=== PATIENT | female | born 1965 | race American Indian/Alaskan Native ===

== ENCOUNTER 2020-12-12 17:47 | Emergency (ER) | payer BC ==
[2020-12-12 18:09] VITALS: BP 121/89
--- NOTE | 2020-12-12 19:23 | XRay Report ---
RIGHT ANKLE, 3 VIEWS INDICATION / CLINICAL INFORMATION: fall down steps, right ankle/foot pain. COMPARISON: None available. FINDINGS: There is mild diffuse soft tissue swelling especially noted medially. No fracture or dislocation of t he ankle is identified, however. Alignment is normal. IMPRESSION: Diffuse soft tissue swelling but no visible fracture or malalignment. RIGHT FOOT, 3 VIEWS INDICATION / CLINICAL INFORMATION: fall down steps, right ankle/foot pain. COMPARISON: None available. FINDINGS: No fracture or dislocation. IMPRESSION: No visible fracture or dislocation. Signer Name: Suni Manzo MD Signed: 12/12/2020 7:18 PM Workstation Name: [id number]
--- NOTE | 2020-12-12 20:05 | Emergency Department Report ---
ED Lower Extremity HPI - General Chief Complaint: Extremity Problem,Nontraumatic Stated Complaint: LT ANKLE PAIN Time Seen by Provider: 12/12/20 18:42 Source: patient Mode of arrival: Ambulatory Limitations: No Limitations - History of Present Illness Initial Comments: Patient is a 55-year-old female presents emergency room complaints of a fall that occurred last night. Patient states that she was inside her house and excellently tripped and fell down approximately 5 steps. She is complaining of right ankle pain and right foot pain and swelling. Denies ever injuring in the past. States ambulation increases her pain. She denies any numbness or weakness. No past medical history. allergy to pencillin. - Related Data Previous Rx's Medication Instructions Recorded Last Taken Type Naproxen 375 mg PO BID PRN #20 tablet 12/12/20 Unknown Rx Allergies Allergy/AdvReac Type Severity Reaction Status Date / Time Penicillins Allergy Unknown Verified 12/12/20 18:05 ED Review of Systems ROS: Stated complaint: LT ANKLE PAIN Other details as noted in HPI Comment: All other systems reviewed and negative ED Past Medical Hx - Past Medical History Previous Medical History?: No - Surgical History Past Surgical History?: No - Medications Home Medications: Home Medications Medication Instructions Recorded Confirmed Last Taken Type Naproxen 375 mg PO BID PRN #20 tablet 12/12/20 Unknown Rx ED Physical Exam - General Limitations: No Limitations General appearance: alert, in no apparent distress - Head Head exam: Present: atraumatic, normocephalic - Eye Eye exam: Present: normal appearance - ENT ENT exam: Present: mucous membranes moist - Extremities Exam Extremities exam: Present: other (ttp and edema present to the right lateral ankle and foot, no obvious deformity, decreased ROM secondary to pain, neurovascularly intact) - Neurological Exam Neurological exam: Present: alert, oriented X3 - Psychiatric Psychiatric exam: Present: normal affect, normal mood - Skin Skin exam: Present: warm, dry, intact ED Course Vital Signs 12/12/20 18:05 Temperature 98.6 F Pulse Rate 86 Respiratory 16 Rate Blood Pressure 121/89 [Left] O2 Sat by Pulse 96 Oximetry ED Lower Extremity MDM - Radiology Data Radiology results: report reviewed Ordering Physician: THALIA WEISS Date of Service: 12/12/20 Procedure(s): XR foot 3+V RT Accession Number(s): [id number] cc: THALIA WEISS Fluoro Time In Minutes: RIGHT ANKLE, 3 VIEWS INDICATION / CLINICAL INFORMATION: fall down steps, right ankle/foot pain. COMPARISON: None available. FINDINGS: There is mild diffuse soft tissue swelling especially noted medially. No fracture or dislocation of the ankle is identified, however. Alignment is normal. IMPRESSION: Diffuse soft tissue swelling but no visible fracture or malalignment. RIGHT FOOT, 3 VIEWS INDICATION / CLINICAL INFORMATION: fall down steps, right ankle/foot pain. COMPARISON: None available. FINDINGS: No fracture or dislocation. IMPRESSION: No visible fracture or dislocation. Signer Name: Suni Manzo MD Signed: 12/12/2020 7:18 PM Workstation Name: [id number] Transcribed By: Dictated By: Suni Manzo MD Electronically Authenticated By: Suni Manzo MD Signed Date/Time: 12/12/201917 DD/ 15 TD/TT: Print - Medical Decision Making Patient is a 55-year-old female presents emergency room complaints of a fall that occurred last night. Patient states that she was inside her house and excellently tripped and fell down approximately 5 steps. She is complaining of right ankle pain and right foot pain and swelling. Denies ever injuring in the past. States ambulation increases her pain. She denies any numbness or weakness. No past medical history. allergy to pencillin. Vitals are normal. On exam:ttp and edema present to the right lateral ankle and foot, no obvious deformity, decreased ROM secondary to pain, neurovascularly intact. X-ray right ankle IMPRESSION: Diffuse soft tissue swelling but no visible fracture or malalignment. X-ray right foot IMPRESSION: No visible fracture or dislocation. Discussed all results with patient answer questions. symptoms and examination likely consistent with ankle sprain. Patient placed in ankle stirrup splint and given crutches by sharples machine operator and remain neurovascularly intact. Advised patient Please take medication as prescribed. Ice for 15 minutes at a time, rest, elevation of leg. Follow-up with orthopedic doctor. Return to emergency room for any new or worsening symptoms. Critical care attestation.: If time is entered above; I have spent that time in minutes in the direct care of this critically ill patient, excluding procedure time. ED Disposition Clinical Impression: Right ankle sprain Qualifiers: Encounter type: initial encounter Involved ligament of ankle: unspecified ligament Qualified Code(s): S93.401A - Sprain of unspecified ligament of right ankle, initial encounter Disposition: 01 HOME / SELF CARE / HOMELESS Is pt being admited?: No Does the pt Need Aspirin: No Condition: Stable Instructions: Ankle Sprain Additional Instructions: Please take medication as prescribed. Ice for 15 minutes at a time, rest, elevation of leg. Follow-up with orthopedic doctor. Return to emergency room for any new or worsening symptoms. Prescriptions: Naproxen 375 mg PO BID PRN #20 tablet PRN Reason: pain Referrals: DUNCAN CALI MD [Staff Physician] - 3-5 Days [facility] [Provider Group] - 3-5 Days Time of Disposition: 19:52 Print Language: [place]
== END 2020-12-12 21:11 | disposition home or self-care (01) ==
LOC: ED 17:47
DX: S93.491A Sprain of other ligament of right ankle, initial encounter (principal); Z88.0 Allergy status to penicillin; W01.0XXA Fall on same level from slipping, tripping and stumbling without subsequent striking against object, initial encounter; Y93.89 Activity, other specified; Y92.89 Other specified places as the place of occurrence of the external cause; Y99.8 Other external cause status
CPT/HCPCS: 99283